=== PATIENT | female | born 1970 | race Two or more races ===

== ENCOUNTER 2019-11-05 03:55 | Inpatient (IN) | payer SELFPAY ==
[~2019-11-05] VITALS: Ht 160 cm; Wt 100.2 kg
[2019-11-05 05:09] LABS: Urine Bacteria MOD /hpf (None Seen); Urine Blood 3+ /uL (Negative); Urine Hyaline Cast MOD /lpf (0 - 2); Urine Mucus FEW (None Seen); Urine Specific Gravity 1.024 (1.001-1.035); Urine WBC 107 /hpf (0 - 5)
[2019-11-05 07:17] LABS: Basophils # (auto) 0.1 10 ^3/uL (0-0.2); Basophils % (auto) 0.3 % (0.0-2.0); Eosinophils # (auto) 0 10 ^3/uL (0-0.8); Eosinophils % (auto) 0.2 % (0.0-7.0); Hematocrit 33.9 % (36.0-46.0); Hemoglobin 11.3 g/dL (12.2-16.2); Lymphocytes # (auto) 1.6 10 ^3/uL (0.4-5.4); Mean Corpuscular Hemoglobin 29.7 pg (28.0-32.0); Mean Corpuscular Hgb Conc. 33.4 g/dL (32.0-36.0); Mean Corpuscular Volume 88.8 fL (80.0-100.0); Monocytes # (auto) 0.7 10 ^3/uL (0-1.3); Monocytes % (auto) 4.2 % (0.0-12.0); Neutrophils # (auto) 13.7 10 ^3/uL (1.6-8.6); Neutrophils % (auto) 85.3 % (37.0-80.0); Nucleated Red Blood Cells % 0.1 %; Platelet Count (auto) 346 10^3/uL (140-450); Red Blood Cells 3.81 10^6/uL (4.0-5.20); Red Cell Distribution Width 12.6 % (11.8-14.3)
[2019-11-05 07:43] LABS: Albumin 3.8 g/dL (3.4-5.0); Calcium 9.3 mg/dL (8.5-10.1); Potassium 3.9 mmol/L (3.5-5.1)
[2019-11-05 07:48] LABS: BUN/Creatinine Ratio 21.1; Bilirubin, Total 0.6 mg/dL (0.2-1.0); Total Protein 7.9 g/dL (6.4-8.2)
[2019-11-05] MEDS ORDERED: SODIUM CHLORIDE 0.9% 1,000 ML IV ONE ×2 (08:28)
[2019-11-05] MEDS ORDERED: LIDOCAINE VISCOUS 2% 15ML UD PO ONE (08:30)
[2019-11-05] MEDS ORDERED: ALUM & MAG HYDROX-SIMETH LIQ(MAALOX) 30 ML PO ONE (08:30)
[2019-11-05] MEDS ORDERED: InsuLIN REG 1unit/0.01ml Soln (100units/ml) IV ONE (08:30)
[2019-11-05] MEDS ORDERED: PIPERACILLIN-TAZOB 3.375GM 100 ML IV ONE (08:30)
[2019-11-05] MEDS ORDERED: DONNATAL 5ml ORAL Elix (BELLADONNA ALK-PHENOBARB) PO ONE (08:30)
[2019-11-05] MEDS ORDERED: ALBUTEROL SULF 2.5 MG/0.5ML(0.5%) NEB SOLN NEB PRN (10:30)
[2019-11-05] MEDS ORDERED: DOXYCYCLINE 100MG/250ML 250 ML IV SCH (10:30)
[2019-11-05] MEDS ORDERED: ACETAMINOPHEN 500 MG TAB PO PRN (10:30)
[2019-11-05] MEDS ORDERED: cefTRIAXone 1GM/50ML D5W 50 ML IV ONE (10:30)
[2019-11-05] MEDS ORDERED: traMADol HCL 50 MG TAB PO PRN (10:30)
[2019-11-05] MEDS ORDERED: NITROGLYCERIN 0.4 MG SL TAB SL PRN (10:30)
[2019-11-05] MEDS ORDERED: TEMAZEPAM 15 MG CAP PO PRN (10:30)
[2019-11-05] MEDS ORDERED: DEXTROSE (50%) 50ML SYRG IV PRN (10:30)
[2019-11-05] MEDS ORDERED: PROMETHAZINE HCL 25 MG/ML 1ML IV PRN (10:30)
[2019-11-05] MEDS ORDERED: FAMOTIDINE (10MG/ML) 2ML VL IV SCH (10:30)
[2019-11-05] MEDS ORDERED: MORPHINE SULF INJ 2 MG/ML SYRINGE 1ML IV PRN (10:30)
[2019-11-05] MEDS: ACCU-CHEK COMFORT CURVE STRIP VI SCH ×2 (12:00→18:49)
[2019-11-05] MEDS: SODIUM CHLORIDE 0.9% 1,000 ML IV SCH ×2 (12:08→21:01)
[2019-11-05] MEDS: PANTOPRAZOLE 40 MG TAB PO SCH ×2 (12:08→21:01)
[2019-11-05] MEDS ORDERED: ENAL20TA PO (12:30)
[2019-11-05] MEDS ORDERED: METF-370 PO (12:30)
[2019-11-05] MEDS ORDERED: HYDR25TA4 PO (12:30)
[2019-11-05] MEDS ORDERED: GEMF600T7 PO (12:30)
[2019-11-05] MEDS: InsuLIN REG 1unit/0.01ml Soln (100units/ml) SC SCH ×2 (12:47→18:48)
[2019-11-05 17:00] VITALS: BP 122/78
[2019-11-05] MEDS: MORPHINE SULF INJ 2 MG/ML SYRINGE 1ML IV PRN (21:31)
[2019-11-05 22:00] VITALS: BP 157/94
[2019-11-05 22:25] VITALS: BP 141/85
[2019-11-05] MEDS: DOXYCYCLINE 100 MG TAB/CAP PO SCH (22:26)
[2019-11-06] MEDS: ACCU-CHEK COMFORT CURVE STRIP VI SCH ×5 (00:29→23:23)
[2019-11-06] MEDS: InsuLIN REG 1unit/0.01ml Soln (100units/ml) SC SCH ×5 (00:30→23:26)
[2019-11-06 05:00] VITALS: BP 155/82
[2019-11-06] MEDS: SODIUM CHLORIDE 0.9% 1,000 ML IV SCH (06:24)
[2019-11-06 08:00] VITALS: BP 138/76
[2019-11-06 09:00] VITALS: BP 138/76
[2019-11-06] MEDS: cefTRIAXone 1GM/50ML D5W 50 ML IV SCH (09:05)
[2019-11-06] MEDS: PANTOPRAZOLE 40 MG TAB PO SCH ×2 (09:18→23:22)
[2019-11-06] MEDS: DOXYCYCLINE 100 MG TAB/CAP PO SCH ×2 (09:19→23:23)
[2019-11-06] MEDS: ENOXAPARIN SOD 40 MG/0.4 ML SYRINGE SC SCH (09:20)
[2019-11-06 09:51] LABS: Basophils # (auto) 0 10 ^3/uL (0-0.2); Basophils % (auto) 0.3 % (0.0-2.0); Eosinophils # (auto) 0.1 10 ^3/uL (0-0.8); Eosinophils % (auto) 0.4 % (0.0-7.0); Hematocrit 32.5 % (36.0-46.0); Hemoglobin 10.9 g/dL (12.2-16.2); Lymphocytes # (auto) 1.3 10 ^3/uL (0.4-5.4); Lymphocytes % (auto) 8.6 % (10.0-50.0); Mean Corpuscular Hgb Conc. 33.5 g/dL (32.0-36.0); Mean Corpuscular Volume 89.7 fL (80.0-100.0); Monocytes # (auto) 1.5 10 ^3/uL (0-1.3); Monocytes % (auto) 10.6 % (0.0-12.0); Neutrophils # (auto) 11.7 10 ^3/uL (1.6-8.6); Neutrophils % (auto) 80.1 % (37.0-80.0); Nucleated Red Blood Cells % 0.1 %; Platelet Count (auto) 287 10^3/uL (140-450); Red Blood Cells 3.62 10^6/uL (4.0-5.20); Red Cell Distribution Width 12.8 % (11.8-14.3); White Blood Cell 14.6 10^3/uL (4.4-10.8)
[2019-11-06 10:06] LABS: Potassium 3.8 mmol/L (3.5-5.1)
[2019-11-06 10:16] LABS: Albumin 3.2 g/dL (3.4-5.0); BUN/Creatinine Ratio 15.1; Bilirubin, Total 0.7 mg/dL (0.2-1.0); Calcium 8.3 mg/dL (8.5-10.1); Total Protein 7.3 g/dL (6.4-8.2)
[2019-11-06 13:00] VITALS: BP 168/80
[2019-11-06 14:14] LABS: Basophils # (auto) 0 10 ^3/uL (0-0.2); Basophils % (auto) 0.2 % (0.0-2.0); Eosinophils # (auto) 0.1 10 ^3/uL (0-0.8); Eosinophils % (auto) 0.6 % (0.0-7.0); Hematocrit 34.1 % (36.0-46.0); Hemoglobin 11.6 g/dL (12.2-16.2); Lymphocytes # (auto) 1.3 10 ^3/uL (0.4-5.4); Lymphocytes % (auto) 9.8 % (10.0-50.0); Mean Corpuscular Hemoglobin 30.9 pg (28.0-32.0); Mean Corpuscular Volume 91.1 fL (80.0-100.0); Monocytes # (auto) 1.2 10 ^3/uL (0-1.3); Monocytes % (auto) 8.6 % (0.0-12.0); Neutrophils % (auto) 80.8 % (37.0-80.0); Platelet Count (auto) 274 10^3/uL (140-450); Red Blood Cells 3.75 10^6/uL (4.0-5.20); White Blood Cell 13.7 10^3/uL (4.4-10.8)
[2019-11-06 14:30] LABS: BUN/Creatinine Ratio 11.8; Potassium 3.8 mmol/L (3.5-5.1)
[2019-11-06 16:40] VITALS: BP 146/90
[2019-11-06] MEDS: MORPHINE SULF INJ 2 MG/ML SYRINGE 1ML IV PRN (19:59)
[2019-11-06 22:00] VITALS: BP 138/84
[2019-11-07 05:00] VITALS: BP 145/79
[2019-11-07] MEDS: ACCU-CHEK COMFORT CURVE STRIP VI SCH ×2 (06:08→13:25)
[2019-11-07] MEDS: InsuLIN REG 1unit/0.01ml Soln (100units/ml) SC SCH ×2 (06:12→13:26)
[2019-11-07 08:16] VITALS: BP 141/91
[2019-11-07 08:36] VITALS: BP 141/91
[2019-11-07] MEDS: PANTOPRAZOLE 40 MG TAB PO SCH (09:09)
[2019-11-07] MEDS: cefTRIAXone 1GM/50ML D5W 50 ML IV SCH (09:09)
[2019-11-07] MEDS: ENOXAPARIN SOD 40 MG/0.4 ML SYRINGE SC SCH (09:13)
[2019-11-07] MEDS: DOXYCYCLINE 100 MG TAB/CAP PO SCH (09:13)
[2019-11-07] MEDS ORDERED: LEVO-28 PO (10:23)
[2019-11-07] MEDS ORDERED: DOX100T PO (10:23)
[2019-11-07] MEDS ORDERED: MULT-228 PO (10:23)
[2019-11-07] MEDS ORDERED: ASCO500T11 PO (10:23)
[2019-11-07] MEDS ORDERED: CHOL20007 PO (10:23)
[2019-11-07] MEDS ORDERED: PANT40T PO (10:31)
[2019-11-07 11:55] VITALS: BP 141/91
[2019-11-07 13:08] VITALS: BP 152/85
== END 2019-11-07 15:30 | disposition home or self-care (01) | DRG 177 ==
LOC: ER 03:58 → TELE 03:59 → TELE-EAST 16:42
PROVIDERS: ADMIT Internal Medicine; ATTEND Internal Medicine
DX: U07.1 COVID-19 (principal); J12.89 Other viral pneumonia; J96.00 Acute respiratory failure, unspecified whether with hypoxia or hypercapnia; N30.01 Acute cystitis with hematuria; R65.10 Systemic inflammatory response syndrome (SIRS) of non-infectious origin without acute organ dysfunction; E11.65 Type 2 diabetes mellitus with hyperglycemia; E66.01 Morbid (severe) obesity due to excess calories; E86.0 Dehydration; I10 Essential (primary) hypertension; K29.70 Gastritis, unspecified, without bleeding; N83.202 Unspecified ovarian cyst, left side; Z68.39 Body mass index [BMI] 39.0-39.9, adult; Z79.899 Other long term (current) drug therapy
CPT/HCPCS: 36415; 71046; 74176; 80048; 80053; 81001; 81025; 82150; 82728; 82962; 83036; 83605; 83615; 83690; 85025; 85379; 85652; 86141; 87040; 87070; 87086; 87088; 87186; 87804; 87880; G0378; J0696; J1815; J2543